=== PATIENT | female | born 1935 | race Caucasian/White ===

== ENCOUNTER → 2021-12-19 | Outpatient (CLI) | payer MEDICARE ==
[~2021-12-19] MED LIST: ALENDRONATE SOD70 MG PO; AMLODIPINE BESYL5 MG; ASPIR-TRIN325 MG PO; CARBIDOPA-LEVO1 EAC1 PO; CLONIDINE HCL0.1 MG PO; DIATRIZOATE MEGL/DIATRIZOA SOD 30 ML BTL PO ONE; ISOSORBIDE DINI30 MG; ISOSORBIDE MONO30 M1 PO; LORAZEPAM0.5 MG PO; MECLIZINE HCL25 MG PO; METOPROLOL SUCC50 MG PO; NITROGLYCERIN0.4 MG SL; NORVASC5 MG PO; PLAVIX75 MG PO; SIMVASTATIN80 MG PO; VITAMIN D31000 UNI1 PO
== END ==
LOC: CT 11:08
PROVIDERS: ATTEND Internal Medicine
DX: K52.9 Noninfective gastroenteritis and colitis, unspecified (principal); R10.30 Lower abdominal pain, unspecified
CPT/HCPCS: 74176